=== PATIENT | female | born 1960 ===

== ENCOUNTER 2016-11-01 12:25 | Inpatient (IN) | payer MEDICAID ==
--- NOTE | 2016-11-01 12:51 | C.PDOC ---
History Of Present Illness A 56 year old female presents to the ED c/o numbness of the right face around mouth, finger tips, feet, and blurred vision since 5 am this morning. Patient notes subjective heaviness and numbness of the right upper and lower extremities , feeling dizziness, weakness of the right arm and neck, and pain in the right neck. Patient denies LOC, vomiting, fever, chills, nausea, or any other complaints. Patient reports not taking any medications at this time. Time Seen by Provider: 11/01/16 12:34 Chief Complaint (Nursing): Weakness/Neurological Deficit History Per: Patient History/Exam Limitations: no limitations Onset/Duration Of Symptoms: Hrs Current Symptoms Are (Timing): Still Present Severity: Mild - Symptoms Of CVA Associated Symptoms: denies: Impaired Speech Past Medical History Reviewed: Historical Data, Nursing Documentation, Vital Signs Vital Signs: Last Vital Signs Temp 97.7 F 11/01/16 12:30 Pulse 86 11/01/16 14:39 Resp 20 11/01/16 14:39 BP 148/85 11/01/16 14:39 Pulse Ox 100 11/01/16 16:24 Family History: States: Unknown Family Hx Review Of Systems Except As Marked, All Systems Reviewed And Found Negative. Constitutional: Negative for: Fever, Chills Gastrointestinal: Negative for: Nausea, Vomiting Musculoskeletal: Positive for: Neck Pain Neurological: Positive for: Weakness (Right upper and lower extremities and neck ), Numbness (Numbness and heaviness of the right face around lip area, finger tips, feet, and right upper and lower extremities), Dizziness. Negative for: Other (LOC) Physical Exam - Physical Exam Appears: Non-toxic Skin: Warm, Dry Head: Atraumatic, Normacephalic Eye(s): bilateral: Normal Inspection Cardiovascular: Rhythm Regular, No Murmur Respiratory: Normal Breath Sounds, No Rales, No Rhonchi, No Wheezing Gastrointestinal/Abdominal: Soft, No Tenderness Neurological/Psych: Oriented x3, Normal Speech (No slurred), Normal Cognition, Normal Motor, Normal Sensation, No Other (No drooling) Extremity: Right: No Drift, Left: No Drift, Upper: No Drift, Lower: No Drift ED Course And Treatment - Laboratory Results Result Diagrams: 11/01/16 13:16 11/01/16 13:16 O2 Sat by Pulse Oximetry: 100 (Room air) Pulse Ox Interpretation: Normal NIHSS Stroke Scale - Date/Time Evaluation Performed Date Performed: 11/01/16 Time Performed: 12:40 When Was NIHSS Performed: Baseline - How Severe is the Stoke Level of Consciousness: 0=Alert LOC to Questions: 0=Both comments correct LOC to commands: 0=Obeys both correctly Best Gaze: 0=Normal Visual: 0=No visual loss Facial: 1=Minor asymmetry Motor Arm - Left: 0=No drift Motor Arm - Right: 0=No drift Motor Leg - Left: 0=No drift Motor Leg - Right: 0=No drift Limb Ataxia: 0=Absent Sensory: 0=Normal Best Language: 0=No aphasia Dysarthia: 0=Normal articulation Extinction & Inattention (Neglect): 0=Normal, no object Score: 1 Severity Of Stroke: 1-4= Minor Stroke rTPA Inclusion/Exclusion - Refusal of Treatment Patient Refused Treatment: No - Inclusion Criteria for Altepase Patient is 18 years or Older: Yes The Clinical Diagnosis of Ischemic Stroke That is Causing a Potentially Disabling Neurological Deficit: No Time of Onset is Well Established to be Less Than 270 Minute Before Treatment Would Begin: No Risk/Benefit Discussed With Patient/Family Member Present: No - Exclusion Criteria for Altepase Uncontrolled Hypertension at Time of Treatment (Systolic BP above 185 or Diastolic BP above 110 mmHg): No Medical Decision Making Medical Decision Making: Differentia Dx: Stroke Plans: -Blood labs -CT scan -EKG -Consultation with Dr. Rosado -CXR -IV fluids -Reassess and disposition Disposition Discussed With DrZuleyma: Leonela Roberson Doctor Will See Patient In The: Hospital Counseled Patient/Family Regarding: Studies Performed - Disposition Disposition: HOSPITALIZED Disposition Time: 16:18 Condition: GUARDED - Clinical Impression Clinical Impression: Stroke - Scribe Statement The provider has reviewed the documentation as recorded by the Scribe Eric felix All medical record entries made by the Scribe were at my direction and personally dictated by me. I have reviewed the chart and agree that the record accurately reflects my personal performance of the history, physical exam, medical decision making, and the department course for this patient. I have also personally directed, reviewed, and agree with the discharge instructions and disposition. Decision To Admit - Pt Status Changed To: Hospital Disposition Of: Inpatient - Admit Certification Admit to Inpatient:: After my assessment, the patient will require hospitalization for at least two midnights. This is because of the severity of symptoms shown, intensity of services needed, and/or the medical risk in this patient being treated as an outpatient. - InPatient: Physician Admission Certification: I certify that this patient requires 2 or more midnights of care for the following reason:: patient with coratid artery stenosis - . Bed Request Type: Telemetry Patient Diagnosis: Stroke
[2016-11-01 13:25] LABS: BASO % 0.6 % (0.0-2.0); EOS # 0.1 K/uL (0.0-0.7); EOS % 0.9 % (0.0-4.0); HEMATOCRIT 43.1 % (34.0-47.0); LYMPH % 36.6 % (20.0-40.0); MEAN CELL VOLUME 91.7 fL (81.0-99.0); MEAN CORPUSCULAR HEMOGLOBIN 30.5 pg (27.0-31.0); MEAN CORPUSCULAR HGB CONC 33.3 g/dL (33.0-37.0); MEAN PLATELET VOLUME 7.4 fL (7.2-11.7); MONO # 0.4 K/uL (0.0-0.8); MONO % 4.9 % (0.0-10.0); NRBC % 0.1 % (0.0-2.0); RED CELL DISTRIBUTION WIDTH 14.3 % (11.5-14.5); WHITE BLOOD COUNT 8.1 K/uL (4.8-10.8)
[2016-11-01 13:29] LABS: CHLORIDE 105 mmol/L (98-107); POTASSIUM 3.8 mmol/L (3.6-5.2); SODIUM 142 mmol/L (132-148)
[2016-11-01 13:31] LABS: ALB/GLOB RATIO 1.5 (1.0-2.1); AST/SGOT 15 U/L (14-36); BILIRUBIN,TOTAL 0.8 mg/dL (0.2-1.3); CARBON DIOXIDE 24 mmol/L (22-30); CHOLESTEROL 199 mg/dL (0-199); GFR AFRICAN-AMERICAN > 60; TOTAL PROTEIN 7.3 g/dL (6.3-8.3)
[2016-11-01 13:32] LABS: ALKALINE PHOSPHATASE 87 U/L (38-126); BLOOD UREA NITROGEN 14 mg/dL (7-17); CALCIUM 8.9 mg/dl (8.6-10.4); GLUCOSE,RANDOM 88 mg/dL (65-105)
--- NOTE | 2016-11-01 13:39 | RAD ---
HISTORY: stroke COMPARISON: None available. TECHNIQUE: Chest, one view. FINDINGS: Examination limited by habitus. LUNGS: No focal consolidation. Please note that chest x-ray has limited sensitivity for the detection of pulmonary masses. PLEURA: No significant pleural effusion identified. No definite pneumothorax . CARDIOVASCULAR: The cardiomediastinal silhouette appears within normal limits of size. OSSEOUS STRUCTURES: No acute osseous abnormality identified. VISUALIZED UPPER ABDOMEN: Unremarkable. OTHER FINDINGS: None. IMPRESSION: No focal consolidation, significant pleural effusion, or definite pneumothorax identified.
[2016-11-01 13:51] LABS: ALT/SGPT < 6 U/L (9-52)
[2016-11-01] MEDS ORDERED: Iodixanol 320 MG/ML 100 ML BOTTLE IV ONE ×2 (13:54→14:19)
[2016-11-01 14:40] VITALS: RESP 20
--- NOTE | 2016-11-01 15:29 | CT ---
PROCEDURE: CTA of the neck and brain 11/01/2016. HISTORY: CVA COMPARISON: No prior TECHNIQUE: Contiguous helical/ transaxial sections of the neck and brain performed in standard fashion following intravenous injection of approximately 100 cc of Visipaque 320 contrast material employing CTA protocol. Additional 2 dimensional sagittal and coronal reformats provided. Radiation dose: Total exam DLP = 1230.55. MGy-cm. This CT exam was performed using one or more of the following dose reduction techniques: Automated exposure control, adjustment of the mA and/or kV according to patient size, and/or use of iterative reconstruction technique. FINDINGS: Origins of the great vessels are patent without with only minor atherosclerotic disease The left common carotid artery is widely patent without evidence of occlusion or significant stenosis. . There elliptical shaped calcified plaque seen along the posterior margin of the left carotid bifurcation extending superiorly into the proximal internal carotid artery with resultant narrowing of the proximal internal carotid artery estimated approximately 70 %. The distal left internal carotid arteries including petrous, cavernous and supraclinoid segments are also widely patent without evidence of occlusion significant stenosis or large aneurysm/ vascular malformation. . Right-sided carotid circulation is widely patent throughout without occlusion or significant stenosis The vertebral arteries are widely patent as well on left-sided which is slightly larger in caliber more dominant than the right. Basilar artery is patent as are posterior cerebral noted in this arteries without occlusion or narrowing. . The visualized major branches of the [place] are also unremarkable without evidence of large aneurysm nor vascular malformation. Suspect minor chronic periventricular white matter ischemic changes. Note the possibility of an acute infarct cannot be excluded on this study and if there is any concern, consider followup MRI of the brain. Of centrilobular emphysematous changes seen in the upper lung sw[place] right more involved than left. IMPRESSION: Unremarkable CTA of the brain. Suspect minor chronic periventricular white matter ischemic changes. Note the possibility of an acute infarct cannot be excluded on this study and if there is any concern, consider followup MRI of the brain. Mild narrowing left bifurcation/proximal internal carotid artery estimated approximately 30 %
--- NOTE | 2016-11-01 16:16 | CP.PCM.CON ---
History of Present Illness - History of Present Illness History of Present Illness: Mrs. Rodríguez is a 56-year-old woman with no significant past medical history who states that she woke up this morning with neck pain and feeling dizzy. As she progressed with her day, she started noticing that her right arm and leg were feeling heavy and she was having less sensation on that side. She presented to the ED with these complaints and underwent a CT scan of the head, which did not show any acute findings. CTA of the head/neck did show a concerning area of stenosis involving the left carotid artery. She continued to complain of right side "heaviness", but did not exhibit significant objective findings, except possibly a slight naso-labial flattening. Her initial NIHSS was possibly a 1. She denied blurry vision, headache, nausea, vomiting, chest pain, shortness of breath, abdominal pain, or other associated symptoms. Review of Systems - Review of Systems All systems: reviewed and no additional remarkable complaints except Past Patient History - Past Social History Smoking Status: Heavy Smoker > 10 Cigarettes Daily - PSYCHIATRIC Hx Substance Use: No - SURGICAL HISTORY Hx Section: Yes - ANESTHESIA Hx Anesthesia: No Hx Anesthesia Reactions: No Meds Allergies/Adverse Reactions: Allergies Allergy/AdvReac Type Severity Reaction Status Date / Time No Known Allergies Allergy Verified 11/01/16 12:53 Physical Exam - Constitutional Appears: Well - Head Exam Head Exam: ATRAUMATIC, NORMAL INSPECTION, NORMOCEPHALIC - Eye Exam Eye Exam: EOMI, Normal appearance, PERRL - ENT Exam ENT Exam: Mucous Membranes Moist, Normal Exam - Neck Exam Neck exam: Positive for: Normal Inspection - Respiratory Exam Respiratory Exam: Clear to Auscultation Bilateral, NORMAL BREATHING PATTERN - Cardiovascular Exam Cardiovascular Exam: REGULAR RHYTHM - GI/Abdominal Exam GI & Abdominal Exam: Normal Bowel Sounds, Soft. absent: Tenderness - Rectal Exam Rectal Exam: Deferred - Neurological Exam Neurological exam: Alert, CN II-XII Intact, Normal Gait, Oriented x3, Reflexes Normal Additional comments: NIHSS = 0 - Expanded Neurological Exam Expanded Patient oriented to: person, place, time Cranial nerves: EOM's Intact: Normal, Facial Sensation: Normal, Gag Reflex: Normal, Nystagmus: Normal Ataxia: No Cerebellar Function: Finger to Nose: Normal, Heel to [place]ias: Normal, Romberg: Normal Upper motor neuron: Babinski Sign: Normal, Oracio Neglect: Normal, Pronator Drift : Normal, Sensory Extinction: Normal Sensory exam: Lower Extremity 2 Point Discrimination: Normal, Lower Extremity Light Touch: Normal, Upper Extremity 2 Point Discrimination: Normal, Upper Extremity Light Touch: Normal Neuro motor strength exam: Left Upper Extremity: 5, Right Upper Extremity: 5, Left Lower Extremity: 5, Right Lower Extremity: 5 DTR: Bicep Left: 2+, Bicep Right: 2+, Patellar Left: 2+, Patellar Right: 2+ - Psychiatric Exam Psychiatric exam: Normal Affect, Normal Mood Results - Vital Signs Recent Vital Signs: Last Vital Signs Temp 97.7 F 11/01/16 12:30 Pulse 86 11/01/16 14:39 Resp 20 11/01/16 14:39 BP 148/85 11/01/16 14:39 Pulse Ox 98 11/01/16 14:39 - Labs Result Diagrams: 11/01/16 13:16 11/01/16 13:16 Labs: Laboratory Results - last 24 hr 11/01/16 11/01/16 11/01/16 13:16 13:16 13:16 WBC 8.1 RBC 4.70 Hgb 14.3 Hct 43.1 MCV 91.7 MCH 30.5 MCHC 33.3 RDW 14.3 Plt Count 322 MPV 7.4 Neut % (Auto) 57.0 Lymph % (Auto) 36.6 [place] % (Auto) 4.9 Eos % (Auto) 0.9 Baso % (Auto) 0.6 Neut # 4.6 Lymph # 3.0 [place] # 0.4 Eos # 0.1 Baso # 0.0 PT 11.3 INR 1.0 APTT 34 Sodium 142 Potassium 3.8 Chloride 105 Carbon Dioxide 24 Anion Gap 17 BUN 14 Creatinine 0.5 L Est GFR ( Amer) > 60 Est GFR (Non-Af Amer) > 60 Random Glucose 88 Hemoglobin A1c Calcium 8.9 Total Bilirubin 0.8 AST 15 ALT < 6 L Alkaline Phosphatase 87 Troponin I < 0.0120 Total Protein 7.3 Albumin 4.4 Globulin 2.9 Albumin/Globulin Ratio 1.5 Triglycerides 100 Cholesterol 199 LDL Cholesterol Direct 137 H HDL Cholesterol 44 Blood Type Antibody Screen 11/01/16 11/01/16 13:16 13:16 WBC RBC Hgb Hct MCV MCH MCHC RDW Plt Count MPV Neut % (Auto) Lymph % (Auto) [place] % (Auto) Eos % (Auto) Baso % (Auto) Neut # Lymph # [place] # Eos # Baso # PT INR APTT Sodium Potassium Chloride Carbon Dioxide Anion Gap BUN Creatinine Est GFR ( Amer) Est GFR (Non-Af Amer) Random Glucose Hemoglobin A1c 5.8 Calcium Total Bilirubin AST ALT Alkaline Phosphatase Troponin I Total Protein Albumin Globulin Albumin/Globulin Ratio Triglycerides Cholesterol LDL Cholesterol Direct HDL Cholesterol Blood Type O POSITIVE Antibody Screen Negative - Imaging and Cardiology CT scan - head Status: Image reviewed by me, Report reviewed by me (No acute findings on CT head. CTA of the head and neck showed left carotid artery stenosis of about 70- 75% without evidence of dissection.) Assessment & Plan (1) Symptomatic carotid artery stenosis Assessment and Plan: The patient's right sided symptoms are consistent with left carotid artery stenosis. Treatment should include loading with Plavix 300 mg once and continuing 75 mg daily, and starting aspirin 81 mg daily, consult vascular surgery, hydrate with NS at 100 mL/hr, PT/OT. Work-up should include MRI/MRA of the head/neck without contrast, echocardiogram with bubble study, carotid doppler, hemoglobin A1c, lipid panel, ESR, CRP. Thank you very much for this interesting consultation. Status: Acute Priority: High
--- NOTE | 2016-11-01 16:48 | CP.PCM.HP ---
History of Present Illness - History of Present Illness History of Present Illness: Medicine Progress Note- Dr. Roberson's Service 56 year old female with no PMHx presents to the hospital after experiencing numbness and tingling over right side of lips, finger tips and tips of her toes since waking up this morning at 5 am. She also experienced dizziness, changes in vision, nausea, and some unsteadiness secondary to dizziness. Patient reports numbness and tingling only lasted for a few minutes, but changes in vision lasted 1-2 hours. Admits to subjective heaviness of the right upper and lower extremities. Symptoms progressively worsened and she decided to come in for evaluation. Last time she saw her PMD was 1 year ago. All symptoms have resolved. Denies syncope, head trauma, chest pain, SOB, fevers, chills, neck stiffness. She does report some "neck pressure" but not pain. PMHx: none Medications: none Allergies: NKDA Surgeries: Present on Admission - Present on Admission Any Indicators Present on Admission: No Review of Systems - Constitutional Constitutional: absent: Chills, Fatigue, Fever, Lethargy - EENT Eyes: Blurred Vision, Change in Vision Ears: Disequilibrium, Dizziness - Cardiovascular Cardiovascular: absent: Chest Pain, Chest Pain at Rest, Dyspnea - Respiratory Respiratory: absent: Cough, Dyspnea, Wheezing - Gastrointestinal Gastrointestinal: absent: Abdominal Pain, Diarrhea, Nausea, Vomiting - Genitourinary Genitourinary: absent: Difficulty Urinating, Dysuria - Musculoskeletal Musculoskeletal: Numbness, Tingling. absent: Back Pain, Myalgias - Integumentary Integumentary: absent: Rash, Wounds - Neurological Neurological: Dizziness, Numbness, Sensory Deficit, Tingling. absent: Confusion , Convulsions, Focal Weakness, Frequent Falls, Headaches, Memory Loss, Syncope, Weakness - Psychiatric Psychiatric: absent: Anxiety, Depression - Endocrine Endocrine: absent: Fatigue, Palpitations - Hematologic/Lymphatic Hematologic: absent: Easy Bruising, Lymphadenopathy Past Patient History - Past Social History Smoking Status: Heavy Smoker > 10 Cigarettes Daily - PSYCHIATRIC Hx Substance Use: No - SURGICAL HISTORY Hx Section: Yes - ANESTHESIA Hx Anesthesia: No Hx Anesthesia Reactions: No Meds Allergies/Adverse Reactions: Allergies Allergy/AdvReac Type Severity Reaction Status Date / Time No Known Allergies Allergy Verified 11/01/16 12:53 Physical Exam - Constitutional Appears: No Acute Distress - Head Exam Head Exam: NORMAL INSPECTION, NORMOCEPHALIC - Eye Exam Eye Exam: EOMI, Normal appearance - ENT Exam ENT Exam: Mucous Membranes Moist Additional comments: +naso-labial flattening - Neck Exam Neck exam: Positive for: Full Rom, Normal Inspection - Respiratory Exam Respiratory Exam: Clear to Auscultation Bilateral, NORMAL BREATHING PATTERN. absent: Rales, Rhonchi, Wheezes - Cardiovascular Exam Cardiovascular Exam: REGULAR RHYTHM, +S1, +S2 - GI/Abdominal Exam GI & Abdominal Exam: Normal Bowel Sounds, Soft. absent: Distended, Tenderness - Extremities Exam Extremities exam: Positive for: full ROM, normal inspection. Negative for: pedal edema - Back Exam Back exam: NORMAL INSPECTION - Neurological Exam Neurological exam: Alert, CN II-XII Intact, Normal Gait, Oriented x3 - Expanded Neurological Exam Expanded Patient oriented to: person, place, time Cranial nerves: EOM's Intact: Normal, Facial [place] w/Forehead Movement: Normal , Facial [place] w/o Forehead Movement: Normal, Facial Sensation: Normal, Gag Reflex: Normal, Nystagmus: Normal, Tongue Deviation: Normal Coma Scale Eye Opening: SPONTANEOUS Coma Scale Motor Response: OBEYS COMMANDS Coma Scale Verbal: Oriented Coma Scale Total: 15 - Psychiatric Exam Psychiatric exam: Normal Affect, Normal Mood - Skin Skin Exam: Dry, Normal Color, Warm Results - Vital Signs Recent Vital Signs: Last Vital Signs Temp 97.7 F 11/01/16 12:30 Pulse 86 11/01/16 14:39 Resp 20 11/01/16 14:39 BP 148/85 11/01/16 14:39 Pulse Ox 100 11/01/16 16:25 - Labs Result Diagrams: 11/01/16 13:16 11/01/16 13:16 Labs: Laboratory Results - last 24 hr 11/01/16 11/01/16 11/01/16 13:16 13:16 13:16 WBC 8.1 RBC 4.70 Hgb 14.3 Hct 43.1 MCV 91.7 MCH 30.5 MCHC 33.3 RDW 14.3 Plt Count 322 MPV 7.4 Neut % (Auto) 57.0 Lymph % (Auto) 36.6 [place] % (Auto) 4.9 Eos % (Auto) 0.9 Baso % (Auto) 0.6 Neut # 4.6 Lymph # 3.0 [place] # 0.4 Eos # 0.1 Baso # 0.0 PT 11.3 INR 1.0 APTT 34 Sodium 142 Potassium 3.8 Chloride 105 Carbon Dioxide 24 Anion Gap 17 BUN 14 Creatinine 0.5 L Est GFR ( Amer) > 60 Est GFR (Non-Af Amer) > 60 Random Glucose 88 Hemoglobin A1c Calcium 8.9 Total Bilirubin 0.8 AST 15 ALT < 6 L Alkaline Phosphatase 87 Troponin I < 0.0120 Total Protein 7.3 Albumin 4.4 Globulin 2.9 Albumin/Globulin Ratio 1.5 Triglycerides 100 Cholesterol 199 LDL Cholesterol Direct 137 H HDL Cholesterol 44 Blood Type Antibody Screen 11/01/16 11/01/16 13:16 13:16 WBC RBC Hgb Hct MCV MCH MCHC RDW Plt Count MPV Neut % (Auto) Lymph % (Auto) [place] % (Auto) Eos % (Auto) Baso % (Auto) Neut # Lymph # [place] # Eos # Baso # PT INR APTT Sodium Potassium Chloride Carbon Dioxide Anion Gap BUN Creatinine Est GFR ( Amer) Est GFR (Non-Af Amer) Random Glucose Hemoglobin A1c 5.8 Calcium Total Bilirubin AST ALT Alkaline Phosphatase Troponin I Total Protein Albumin Globulin Albumin/Globulin Ratio Triglycerides Cholesterol LDL Cholesterol Direct HDL Cholesterol Blood Type O POSITIVE Antibody Screen Negative Assessment & Plan (1) Symptomatic carotid artery stenosis Assessment and Plan: Admit to Tele. Head CT showed no acute findings as reviewed by neurologist. CTA of the head and neck showed left carotid artery stenosis of about 70-75% without evidence of dissection. Neuro consult placed- Dr. Rosado- called by ED attending. As per neuro: The patient's right sided symptoms are consistent with left carotid artery stenosis. Patient received loading dose of Plavix 300 mg and continuing 75 mg daily as per Neuro. Start aspirin 81 mg daily Start Crestor 5 mg po HS NS at 100 mL/hr PT/OT Neuro checks f/u Swallow eval Consult vascular surgery as per neuro-Dr. Hsieh- help appreciated. f/u MRI/MRA of the head/neck without contrast as per neuro f/u echocardiogram with bubble study f/u carotid doppler hemoglobin A1c, lipid panel, ESR, CRP. Status: Acute Priority: High (2) Prophylactic measure Assessment and Plan: SCDs Heparin SC Q8H Pepcid 20 mg PO BID All management as per Dr. Roberson Status: Acute
[2016-11-01] MEDS: Sodium Chloride 0.9% 1,000 ML IV SCH (17:08)
[2016-11-01] MEDS ORDERED: Sodium Chloride 0.9% 1,000 ML ONE (17:08)
--- NOTE | 2016-11-01 18:39 | CP.PCM.CON ---
History of Present Illness - History of Present Illness History of Present Illness: note dictated clear cut symptoms duplex pending, cta reviewed may benefit from intervention if findings and cardiac condition staisfatory dwp in serbian Past Patient History - Past Social History Smoking Status: Heavy Smoker > 10 Cigarettes Daily - PSYCHIATRIC Hx Substance Use: No - SURGICAL HISTORY Hx Section: Yes - ANESTHESIA Hx Anesthesia: No Hx Anesthesia Reactions: No Meds Allergies/Adverse Reactions: Allergies Allergy/AdvReac Type Severity Reaction Status Date / Time No Known Allergies Allergy Verified 11/01/16 12:53 - Medications Medications: Current Medications Aspirin (Aspirin Chewable) 81 mg PO DAILY [facility] Famotidine (Pepcid) 20 mg PO BID [facility] Heparin Sodium (Porcine) (Heparin) 5,000 units SC Q8H [facility] Sodium Chloride (Sodium Chloride 0.9%) 1,000 mls @ 100 mls/hr IV .Q10H [facility] Last Admin: 11/01/16 17:08 Dose: 100 mls/hr Lisinopril (Zestril) 2.5 mg PO DAILY [facility] Ondansetron HCl (Zofran Inj) 4 mg IVP Q6 PRN PRN Reason: Nausea/Vomiting Rosuvastatin Calcium (Crestor) 5 mg PO HS [facility] Results - Vital Signs Recent Vital Signs: Last Vital Signs Temp 97.7 F 11/01/16 12:30 Pulse 86 11/01/16 14:39 Resp 20 11/01/16 14:39 BP 148/85 11/01/16 14:39 Pulse Ox 100 11/01/16 16:25 - Labs Result Diagrams: 11/01/16 13:16 11/01/16 13:16
--- NOTE | 2016-11-01 23:00 | CON ---
DATE: 11/01/2016 HISTORY OF PRESENT ILLNESS: The patient is a 56-year-old woman, nondiabetic, nonhypertensive, smoker who was admitted to the hospital with left hemispheric symptoms, right-sided facial weakness, right hand weakness, which came in fast today. Exactly how long lasting . PAST MEDICAL HISTORY: Apart from this, remarkable for section. She has 4 children. She de nies any other history of serious illnesses at present. FAMILY HISTORY: Noncontributory. SOCIAL HISTORY: She smokes a pack of cigarettes a day. REVIEW OF SYSTEMS: Obtained particularly in regard to cardiac or neurological problems and she denie d any other systemic complaints. PHYSICAL EXAMINATION: Shows no residual weakness at this time. She has all peripheral pulses. She has no other signs of peripheral vascular insufficiency. DIAGNOSTIC: CT angiogram which was done was reviewed and basically shows that the patient has a narr owing of at least 70% at the origin of the left internal carotid artery. IMPRESSION: The patient has had a left hemispheric neurological event, which may be receding. RECOMMENDATION: The patient will have a duplex scan to confirm the degree of stenosis. Most likely, this patient would benefit from carotid endarterectomy. She is clearly symptomatic. However, we ne ed further evaluation of her cardiac status and further evaluation by duplex imaging of the carotid b ifurcation. She should be started on medications, which she has already been started on and I will f ollow her closely with you. Adilson Hsihe Jr., MD cc: [id number] TT: 11/01/2016 23:00:06 Confirmation # [id number] Dictation # [id number] mn
[2016-11-02] MEDS: Sodium Chloride 0.9% 1,000 ML IV SCH ×2 (04:16→13:15)
[2016-11-02 06:19] LABS: BASO % 0.5 % (0.0-2.0); EOS # 0.1 K/uL (0.0-0.7); EOS % 1.4 % (0.0-4.0); HEMATOCRIT 39.2 % (34.0-47.0); LYMPH # 2.5 K/uL (1.0-4.3); LYMPH % 34.8 % (20.0-40.0); MEAN CELL VOLUME 92.5 fL (81.0-99.0); MEAN CORPUSCULAR HEMOGLOBIN 30.8 pg (27.0-31.0); MEAN CORPUSCULAR HGB CONC 33.3 g/dL (33.0-37.0); MEAN PLATELET VOLUME 7.6 fL (7.2-11.7); MONO # 0.5 K/uL (0.0-0.8); MONO % 7.3 % (0.0-10.0); RED CELL DISTRIBUTION WIDTH 14.2 % (11.5-14.5); WHITE BLOOD COUNT 7.3 K/uL (4.8-10.8)
[2016-11-02 07:54] LABS: THYROID STIMULATING HORMONE 1.75 mIU/L (0.46-4.68)
[2016-11-02 08:09] LABS: CHLORIDE 110 mmol/L (98-107); SODIUM 142 mmol/L (132-148)
[2016-11-02 08:11] LABS: GFR AFRICAN-AMERICAN > 60
[2016-11-02 08:12] LABS: ALB/GLOB RATIO 1.4 (1.0-2.1); ALKALINE PHOSPHATASE 76 U/L (38-126); ALT/SGPT 14 U/L (9-52); AST/SGOT 16 U/L (14-36); BILIRUBIN,TOTAL 0.7 mg/dL (0.2-1.3); BLOOD UREA NITROGEN 18 mg/dL (7-17); CALCIUM 8.2 mg/dl (8.6-10.4); CARBON DIOXIDE 22 mmol/L (22-30); GLUCOSE,RANDOM 96 mg/dL (65-105); TOTAL PROTEIN 6.3 g/dL (6.3-8.3)
--- NOTE | 2016-11-02 09:24 | CP.PCM.PN ---
Subjective - Date & Time of Evaluation Date of Evaluation: 11/02/16 Time of Evaluation: 09:20 - Subjective Subjective: Medicine Progress Note- Dr. Roberson: Patient seen and examined at bedside this morning. Patient's daughter at bedside. Discussed findings of carotid stenosis, aneurysm, and need for left endarterectomy with patient. Patient and daughter understand and are agreeable. No complaints this AM. No acute events overnight. Objective - Vital Signs/Intake and Output Vital Signs (last 24 hours): Temp Pulse Resp BP Pulse Ox 98.3 F 82 20 157/75 H 98 11/02/16 07:35 11/02/16 07:35 11/02/16 07:35 11/02/16 07:35 11/02/16 07:35 Intake and Output: 11/02/16 11/02/16 06:59 18:59 Intake Total 2250 Balance 2250 - Medications Medications: Current Medications Aspirin (Aspirin Chewable) 81 mg PO DAILY [facility] Famotidine (Pepcid) 20 mg PO BID [facility] Last Admin: 11/01/16 18:58 Dose: 20 mg Heparin Sodium (Porcine) (Heparin) 5,000 units SC Q8H [facility] Last Admin: 11/02/16 06:03 Dose: 5,000 units Sodium Chloride (Sodium Chloride 0.9%) 1,000 mls @ 100 mls/hr IV .Q10H [facility] Last Admin: 11/02/16 04:16 Dose: 100 mls/hr Lisinopril (Zestril) 2.5 mg PO DAILY [facility] Ondansetron HCl (Zofran Inj) 4 mg IVP Q6 PRN PRN Reason: Nausea/Vomiting Pneumococcal Polyvalent Vaccine (Pneumovax 23 Vaccine) 0.5 ml IM .ONCE ONE Stop: 11/04/16 10:01 Rosuvastatin Calcium (Crestor) 5 mg PO HS [facility] Last Admin: 11/01/16 21:26 Dose: 5 mg - Labs Labs: 11/02/16 06:08 11/02/16 06:08 PT 11.3 SECONDS (9.7-12.2) 11/01/16 13:16 INR 1.0 11/01/16 13:16 APTT 34 SECONDS (21-34) 11/01/16 13:16 - Constitutional Appears: No Acute Distress - Head Exam Head Exam: NORMAL INSPECTION, NORMOCEPHALIC - Eye Exam Eye Exam: EOMI, Normal appearance - ENT Exam ENT Exam: Mucous Membranes Moist - Neck Exam Neck Exam: Full ROM, Normal Inspection - Respiratory Exam Respiratory Exam: Clear to Ausculation Bilateral, NORMAL BREATHING PATTERN - Cardiovascular Exam Cardiovascular Exam: REGULAR RHYTHM, +S1, +S2 - GI/Abdominal Exam GI & Abdominal Exam: Soft. absent: Distended, Tenderness - Extremities Exam Extremities Exam: Full ROM, Normal Inspection. absent: Pedal Edema - Back Exam Back Exam: NORMAL INSPECTION - Neurological Exam Neurological Exam: Alert, Awake, Oriented x3 - Psychiatric Exam Psychiatric exam: Normal Affect, Normal Mood - Skin Skin Exam: Dry, Normal Color, Warm Assessment and Plan - Assessment and Plan (Free Text) Assessment: (1) Symptomatic carotid artery stenosis Assessment and Plan: Admit to Tele. Head CT showed no acute findings as reviewed by neurologist. CTA of the head and neck showed left carotid artery stenosis of about 70-75% without evidence of dissection. Neuro consult placed- Dr. Rosado- called by ED attending. As per neuro: The patient's right sided symptoms are consistent with left carotid artery stenosis. Pleavix 75 mg daily as per Neuro. Aspirin 81 mg daily Crestor 5 mg po HS NS at 100 mL/hr PT/OT Neuro checks Consult vascular surgery as per neuro-Dr. Hsieh- help appreciated. Patient recommended for endarterectomy. Cardio consult placed for cardio clearance- Dr. Tavares- help appreciated. MRI brain:No evidence of acute or subacute infarct. No evidence of mass lesion mass effect or midline shift. Mild white matter changes suggestive but nonspecific for chronic microvascular ischemic disease. 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 Prominent right posterior communicated artery continuous to P2.No hemodynamically significant stenosis or occlusion of the intracranial circulation. f/u Echocardiogram with bubble study- done, wait on official read. f/u Carotid dopplers- done, wait on official read. 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 Neuro surgery consult placed- Dr. Loyd- help appreciated. As per neurologist, diagnostic cerebral angiogram recommended for further evaluation since the patient may have treatment of the proximally located carotid stenosis. May need to transfer to [place] for the angiogram. (3) Hyperlipidemia Assessment and Plan: T, Chol: 199, LDL 127, HDL 44. Crestor 5 mg po HS (4) Prophylactic measure Assessment and Plan: SCDs Heparin SC Q8H Pepcid 20 mg PO BID All management as per Dr. Roberson Status: Acute
--- NOTE | 2016-11-02 09:42 | MRI ---
PROCEDURE: Magnetic Resonance Angiography Brain HISTORY: code stroke COMPARISON: None available. TECHNIQUE: 3D time of flight MR angiography of the intracranial arteries was performed. Rotating maximum intensity projection images were generated. FINDINGS: INTERNAL CEREBRAL ARTERIES: There is 3.5 x 3.2 millimeter saccular aneurysm arising from the left cavernous internal carotid artery. The skull base, petrous, cavernous and supraclinoid segments are bilaterally widely patient. ANTERIOR CEREBRAL ARTERIES: Unremarkable. A1 and A2 segments are widely patent. Smaller distal branches unremarkable, as visualized. MIDDLE CEREBRAL ARTERIES: Unremarkable. M1 and M2 segments are widely patent. Perisylvian branches grossly symmetric. POSTERIOR CIRCULATION: Basilar Artery: Unremarkable. Distal Vertebral Arteries: Unremarkable. Posterior Cerebral Arteries: The right P1 is small in size. The right posterior communicated artery is prominent in size supplies the right posterior cerebral artery Posterior Inferior Cerebellar Arteries: Unremarkable. ANEURYSM/ VASCULAR MALFORMATIONS: 3.5 millimeter saccular aneurysm at the left cavernous internal carotid artery. OTHER FINDINGS: None. 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 Prominent right posterior communicated artery continuous to P2. No hemodynamically significant stenosis or occlusion of the intracranial circulation. Preliminary report was submitted by [facility].
--- NOTE | 2016-11-02 09:49 | MRI ---
PROCEDURE: MRI BRAIN WITHOUT CONTRAST HISTORY: code stroke COMPARISON: Comparison is made to the previous CT and CTA of the brain done on the same day. TECHNIQUE: Multiplanar, multisequence MR images of the brain were obtained without intravenous contrast enhancement. FINDINGS: HEMORRHAGE: None DWI: No evidence of an acute or early subacute infarction. BRAIN PARENCHYMA: No mass effect or edema. Small foci of hyperintense FLAIR signal seen in the white matter suggestive but nonspecific for chronic microvascular ischemic disease. VENTRICLES: Unremarkable. No hydrocephalus. CRANIUM: Unremarkable. ORBITS: Grossly unremarkable. PARANASAL SINUSES/MASTOIDS: Clear VASCULAR SYSTEM: Skull base flow voids intact. OTHER FINDINGS: None. IMPRESSION: No evidence of acute or subacute infarct. No evidence of mass lesion mass effect or midline shift. Mild white matter changes suggestive but nonspecific for chronic microvascular ischemic disease. Preliminary report was submitted by [facility].
--- NOTE | 2016-11-02 10:41 | MRI ---
PROCEDURE: MR Angiography of the neck without contrast HISTORY: carotid stenosis COMPARISON: None available. TECHNIQUE: 3D [id number] angiography of the neck was performed. Rotating maximum intensity projection images of the cervical carotid and vertebral arteries were generated. The origins of the common carotid arteries were not visualized, which is a limitation inherent to the non-contrast time of flight technique. FINDINGS: RIGHT CAROTID ARTERIES: Common Carotid Artery: Normal. Carotid Bifurcation: Normal. Internal Carotid Artery:Normal. External Carotid Artery (proximal branches): Normal. LEFT CAROTID ARTERIES: Common Carotid Artery: Normal. Carotid Bifurcation: Normal. Internal Carotid Artery:There is focal approximately 50 percent stenosis at the origin of the left internal carotid artery. External Carotid Artery (proximal branches): Normal. VERTEBRAL ARTERIES: Right Vertebral Artery: Normal. Left Vertebral Artery: Normal. OTHER FINDINGS: None. IMPRESSION: Focal mild approximately 50 percent stenosis at the origin of the left internal carotid artery. Otherwise no evidence of hemodynamically significant stenosis at the carotid and vertebral arteries in the neck. Preliminary report was submitted by [facility].
--- NOTE | 2016-11-02 12:33 | CP.PCM.PN ---
Subjective - Date & Time of Evaluation Date of Evaluation: 11/02/16 Time of Evaluation: 12:32 - Subjective Subjective: studies reviewed intracerebral aneurysm noted i advise left endarterectomy will discuss with consultants Objective - Vital Signs/Intake and Output Vital Signs (last 24 hours): Temp Pulse Resp BP Pulse Ox 98.3 F 82 20 145/73 98 11/02/16 07:35 11/02/16 07:35 11/02/16 07:35 11/02/16 11:00 11/02/16 07:35 Intake and Output: 11/02/16 11/02/16 06:59 18:59 Intake Total 2250 Balance 2250 - Medications Medications: Current Medications Aspirin (Aspirin Chewable) 81 mg PO DAILY [facility] Last Admin: 11/02/16 10:46 Dose: 81 mg Famotidine (Pepcid) 20 mg PO BID [facility] Last Admin: 11/02/16 10:46 Dose: 20 mg Heparin Sodium (Porcine) (Heparin) 5,000 units SC Q8H [facility] Last Admin: 11/02/16 06:03 Dose: 5,000 units Sodium Chloride (Sodium Chloride 0.9%) 1,000 mls @ 100 mls/hr IV .Q10H [facility] Last Admin: 11/02/16 04:16 Dose: 100 mls/hr Lisinopril (Zestril) 2.5 mg PO DAILY [facility] Last Admin: 11/02/16 10:46 Dose: 2.5 mg Ondansetron HCl (Zofran Inj) 4 mg IVP Q6 PRN PRN Reason: Nausea/Vomiting Pneumococcal Polyvalent Vaccine (Pneumovax 23 Vaccine) 0.5 ml IM .ONCE ONE Stop: 11/04/16 10:01 Rosuvastatin Calcium (Crestor) 5 mg PO HS [facility] Last Admin: 11/01/16 21:26 Dose: 5 mg - Labs Labs: 11/02/16 06:08 11/02/16 06:08 PT 11.3 SECONDS (9.7-12.2) 11/01/16 13:16 INR 1.0 11/01/16 13:16 APTT 34 SECONDS (21-34) 11/01/16 13:16
--- NOTE | 2016-11-02 14:41 | CP.PCM.PN ---
Subjective - Date & Time of Evaluation Date of Evaluation: 11/02/16 Time of Evaluation: 12:00 - Subjective Subjective: Mrs. Rodríguez was seen and examined today at bedside. She had no new complaints and said that she felt that the heaviness on her right side was improved. There were no acute events overnight. I discussed the findings of the vascular imaging with the patient and we spoke about options for diagnosis and potential treatment. Objective - Vital Signs/Intake and Output Vital Signs (last 24 hours): Temp Pulse Resp BP Pulse Ox 98.3 F 82 20 145/73 98 11/02/16 07:35 11/02/16 07:35 11/02/16 07:35 11/02/16 11:00 11/02/16 07:35 Intake and Output: 11/02/16 11/02/16 06:59 18:59 Intake Total 2250 Balance 2250 - Medications Medications: Current Medications Aspirin (Aspirin Chewable) 81 mg PO DAILY [facility] Last Admin: 11/02/16 10:46 Dose: 81 mg Famotidine (Pepcid) 20 mg PO BID [facility] Last Admin: 11/02/16 10:46 Dose: 20 mg Heparin Sodium (Porcine) (Heparin) 5,000 units SC Q8H [facility] Last Admin: 11/02/16 13:29 Dose: 5,000 units Sodium Chloride (Sodium Chloride 0.9%) 1,000 mls @ 100 mls/hr IV .Q10H [facility] Last Admin: 11/02/16 04:16 Dose: 100 mls/hr Lisinopril (Zestril) 2.5 mg PO DAILY [facility] Last Admin: 11/02/16 10:46 Dose: 2.5 mg Ondansetron HCl (Zofran Inj) 4 mg IVP Q6 PRN PRN Reason: Nausea/Vomiting Pneumococcal Polyvalent Vaccine (Pneumovax 23 Vaccine) 0.5 ml IM .ONCE ONE Stop: 11/04/16 10:01 Rosuvastatin Calcium (Crestor) 5 mg PO HS [facility] Last Admin: 11/01/16 21:26 Dose: 5 mg - Labs Labs: 11/02/16 06:08 11/02/16 06:08 PT 11.3 SECONDS (9.7-12.2) 11/01/16 13:16 INR 1.0 11/01/16 13:16 APTT 34 SECONDS (21-34) 11/01/16 13:16 - Constitutional Appears: Well - Head Exam Head Exam: ATRAUMATIC, NORMAL INSPECTION, NORMOCEPHALIC - Eye Exam Eye Exam: EOMI, Normal appearance, PERRL Pupil Exam: NORMAL ACCOMODATION, PERRL - ENT Exam ENT Exam: Mucous Membranes Moist, Normal Exam - Neck Exam Neck Exam: Full ROM, Normal Inspection. absent: Lymphadenopathy - Cardiovascular Exam Cardiovascular Exam: REGULAR RHYTHM, +S1, +S2. absent: Murmur - GI/Abdominal Exam GI & Abdominal Exam: Soft, Normal Bowel Sounds. absent: Tenderness - Neurological Exam Neurological Exam: Alert, Awake, CN II-XII Intact, Normal Gait, Oriented x3 Neuro motor strength exam: Left Upper Extremity: 5, Right Upper Extremity: 5, Left Lower Extremity: 5, Right Lower Extremity: 5 - Psychiatric Exam Psychiatric exam: Normal Affect, Normal Mood Assessment and Plan (1) Symptomatic carotid artery stenosis Assessment & Plan: Continue anti-platelet medication for stroke prevention and follow up with vascular surgery for potential treatment. Adequate hydration to maintain cerebral perfusion is recommended. PT/OT and DVT Px. Status: Acute (2) Cerebral aneurysm without rupture Assessment & Plan: Recommend diagnostic cerebral angiogram for further evaluation since the patient may have treatment of the proximally located carotid stenosis. May need to transfer to [place] for the angiogram. Status: Acute
--- NOTE | 2016-11-02 15:24 | CP.PCM.CON ---
History of Present Illness - History of Present Illness History of Present Illness: I was asked to give a cardiology risk assessment in a patient who requires carotid endarterectomy. Patient is a 56 year female with PMH HTN who presents with facial numbness. The patient has been found to have a left carotid stenosis. She will require endarterectomy. The patient is a smoker for greater than 30 years. She has dyspnea on exertion ,particularly with walking a flight of stairs. She denies chest pain. Review of Systems - Constitutional Constitutional: absent: As Per HPI, Anorexia, Chills, Daytime Sleepiness, Excessive Sweating, Fatigue, Fever, Frequent Falls, Headache, Increased Appetite , Lethargy, Malaise, Night Sweats, Snoring, Sleep Apnea, Weight Gain, Weight Loss, Weakness, Other - EENT Eyes: absent: As Per HPI, Blind Spots, Blurred Vision, Change in Vision, Decreased Night Vision, Diplopia, Discharge, Dry Eye, Exophthalmos, Floaters, Irritation, Itchy Eyes, Loss of Peripheral Vision, Pain, Photophobia, Requires Corrective Lenses, Sees Flashes, Spots in Vision, Tunnel Vision, Other Visual Disturbances, Loss of Vision, Other Ears: absent: As Per HPI, Decreased Hearing, Ear Discharge, Ear Pain, Tinnitus, Abnormal Hearing, Disequilibrium, Dizziness, Other Nose/Mouth/Throat: absent: As Per HPI, Epistaxis, Nasal Congestion, Nasal Discharge, Nasal Obstruction, Nasal Trauma, Nose Pain, Post Nasal Drip, Sinus Pain, Sinus Pressure, Bleeding Gums, Change in Voice, Dental Pain, Dry Mouth, Dysphagia, Halitosis, Hoarsness, Lip Swelling, Mouth Lesions, Mouth Pain, Odynophagia, Sore Throat, Throat Swelling, Tongue Swelling, Facial Pain, Neck Pain, Neck Mass, Other - Cardiovascular Cardiovascular: Dyspnea - Gastrointestinal Gastrointestinal: absent: As Per HPI, Abdominal Pain, Belching, Bloating, Change in Bowel Habits, Change in Stool Character, Coffee Ground Emesis, Constipation, Cramping, Diarrhea, Dyspepsia, Dysphagia, Early Satiety, Excessive Flatus, Fecal Incontinence, Heartburn, Hematemesis, Hematochezia, Loose Stools, Melena, Nausea, Odynophagia, Temesmus, Vomiting, Other - Genitourinary Genitourinary: absent: As Per HPI, Change in Urinary Stream, Difficulty Urinating, Dysuria, Flank Pain, Hematuria, Pyuria, Nocturia, Urinary Incontinence, Urinary Frequency, Urinary Hesitance, Urinary Urgency, Voiding Freq/Small Amts, Freq UTI, Hx Renal/Bladder Calculi, Hx /Renal Surgery, Bladder Distension, Other - Musculoskeletal Musculoskeletal: absent: As Per HPI, Abnormal Gait, Arthralgias, Atrophy, Back Pain, Deformity, Joint Swelling, Limited Range of Motion, Loss of Height, Muscle Cramps, Muscle Weakness, Myalgias, Neck Pain, Numbness, Radiating Pain into Limb, Stiffness, Tingling, Other - Integumentary Integumentary: absent: As Per HPI, Acne, Alopecia, Bleeding Lesions, Change in Hair, Change in Nails, Change in Pigmentation, Changing Lesions, Dry Skin, Erythema, Furuncle, Hirsutism, Lesions, New Lesions, Non-Healing Lesions, Photosensitivity, Pruritus, Rash, Skin Pain, Skin Ulcer, Sores, Striae, Swelling , Unusual Bruising, Wounds, Jaundice, Other - Neurological Neurological: Focal Weakness - Psychiatric Psychiatric: absent: As Per HPI, Abnormal Sleep Pattern, Anhedonia, Anxiety, Auditory Hallucinations, Behavioral Changes, Change in Appetite, Change in Libido, Confusion, Depression, Difficulty Concentrating, Hallucinations, Homicidal Ideation, Hopelessness, Irritability, Memory Loss, Mood Swings, Panic Attacks, Paranoia, Suicidal Ideation, Visual Hallucinations, Tactile Hallucinations, Other - Endocrine Endocrine: absent: As Per HPI, Change in Body Appearance, Change in Libido, Cold Intolorance, Deepening of Voice, Excessive Sweating, Fatigue, Flushing, Heat Intolorance, Increase in Ring/Shoe/Hat Size, Palpitations, Polydipsia, Polyphagia, Polyuria, Other - Hematologic/Lymphatic Hematologic: absent: As Per HPI, Easy Bleeding, Easy Bruising, Lymphadenopathy, Other Past Patient History - Past Social History Smoking Status: Current Some Days Smoker - CARDIAC Hx Cardiac Disorders: No - PULMONARY Hx Respiratory Disorders: No - NEUROLOGICAL Hx Neurological Disorder: No - HEENT Hx HEENT Problems: No - RENAL Hx Chronic Kidney Disease: No - ENDOCRINE/METABOLIC Hx Endocrine Disorders: No - HEMATOLOGICAL/ONCOLOGICAL Hx Blood Disorders: No - INTEGUMENTARY Hx Dermatological Problems: No - MUSCULOSKELETAL/RHEUMATOLOGICAL Hx Musculoskeletal Disorders: No Hx Falls: No - GASTROINTESTINAL Hx Gastrointestinal Disorders: No - GENITOURINARY/GYNECOLOGICAL Hx Genitourinary Disorders: No - PSYCHIATRIC Hx Psychophysiologic Disorder: No Hx Substance Use: No - SURGICAL HISTORY Hx Section: Yes (20 years ago) - ANESTHESIA Hx Anesthesia: No Hx Anesthesia Reactions: No Has any member of the family had a problem w/ anesthesia?: No Meds Allergies/Adverse Reactions: Allergies Allergy/AdvReac Type Severity Reaction Status Date / Time No Known Allergies Allergy Verified 11/01/16 12:53 - Medications Medications: Current Medications Aspirin (Aspirin Chewable) 81 mg PO DAILY [facility] Last Admin: 11/02/16 10:46 Dose: 81 mg Famotidine (Pepcid) 20 mg PO BID [facility] Last Admin: 11/02/16 10:46 Dose: 20 mg Heparin Sodium (Porcine) (Heparin) 5,000 units SC Q8H [facility] Last Admin: 11/02/16 13:29 Dose: 5,000 units Sodium Chloride (Sodium Chloride 0.9%) 1,000 mls @ 100 mls/hr IV .Q10H [facility] Last Admin: 11/02/16 04:16 Dose: 100 mls/hr Lisinopril (Zestril) 2.5 mg PO DAILY [facility] Last Admin: 11/02/16 10:46 Dose: 2.5 mg Ondansetron HCl (Zofran Inj) 4 mg IVP Q6 PRN PRN Reason: Nausea/Vomiting Pneumococcal Polyvalent Vaccine (Pneumovax 23 Vaccine) 0.5 ml IM .ONCE ONE Stop: 11/04/16 10:01 Rosuvastatin Calcium (Crestor) 5 mg PO [facility] Last Admin: 11/01/16 21:26 Dose: 5 mg Physical Exam - Constitutional Appears: Non-toxic - Head Exam Head Exam: NORMAL INSPECTION - Eye Exam Eye Exam: Normal appearance - ENT Exam ENT Exam: Mucous Membranes Moist - Neck Exam Neck exam: Positive for: Full Rom - Respiratory Exam Respiratory Exam: Decreased Breath Sounds - Cardiovascular Exam Cardiovascular Exam: REGULAR RHYTHM - GI/Abdominal Exam GI & Abdominal Exam: Normal Bowel Sounds - Rectal Exam Rectal Exam: Deferred - Extremities Exam Extremities exam: Negative for: pedal edema - Back Exam Back exam: NORMAL INSPECTION - Neurological Exam Neurological exam: Alert, Oriented x3 - Psychiatric Exam Psychiatric exam: Normal Affect - Skin Skin Exam: Normal Color Results - Vital Signs Recent Vital Signs: Last Vital Signs Temp 98.3 F 11/02/16 07:35 Pulse 82 11/02/16 07:35 Resp 20 11/02/16 07:35 BP 145/73 11/02/16 11:00 Pulse Ox 98 11/02/16 07:35 - Labs Result Diagrams: 11/02/16 06:08 11/02/16 06:08 Labs: Laboratory Results - last 24 hr 11/01/16 11/01/16 11/02/16 18:49 21:36 06:06 WBC RBC Hgb Hct MCV MCH MCHC RDW Plt Count MPV Neut % (Auto) Lymph % (Auto) [place] % (Auto) Eos % (Auto) Baso % (Auto) Neut # Lymph # [place] # Eos # Baso # Sodium Potassium Chloride Carbon Dioxide Anion Gap BUN Creatinine Est GFR ( Amer) Est GFR (Non-Af Amer) POC Glucose (mg/dL) 79 95 89 Random Glucose Calcium Total Bilirubin AST ALT Alkaline Phosphatase Total Protein Albumin Globulin Albumin/Globulin Ratio TSH 3rd Generation 11/02/16 11/02/16 11/02/16 06:08 06:08 11:51 WBC 7.3 RBC 4.24 Hgb 13.1 Hct 39.2 MCV 92.5 MCH 30.8 MCHC 33.3 RDW 14.2 Plt Count 297 MPV 7.6 Neut % (Auto) 56.0 Lymph % (Auto) 34.8 [place] % (Auto) 7.3 Eos % (Auto) 1.4 Baso % (Auto) 0.5 Neut # 4.1 Lymph # 2.5 [place] # 0.5 Eos # 0.1 Baso # 0.0 Sodium 142 Potassium 4.0 Chloride 110 H Carbon Dioxide 22 Anion Gap 15 BUN 18 H Creatinine 0.6 L Est GFR ( Amer) > 60 Est GFR (Non-Af Amer) > 60 POC Glucose (mg/dL) 121 H Random Glucose 96 Calcium 8.2 L Total Bilirubin 0.7 AST 16 ALT 14 Alkaline Phosphatase 76 Total Protein 6.3 Albumin 3.6 Globulin 2.7 Albumin/Globulin Ratio 1.4 TSH 3rd Generation 1.75 - EKG Data EKG Interpreted by: Myself EKG shows normal: Sinus rhythm Assessment & Plan (1) Symptomatic carotid artery stenosis Assessment and Plan: patient is a smoker and has cardiovascular risk factors. Recommend nuclear perfusion imaging prior to surgery. I reviewed the echocardiogram with the patient. Status: Acute Priority: High (2) HTN (hypertension) Assessment and Plan: blood pressure control Status: Acute
--- NOTE | 2016-11-02 15:59 | VASCLAB ---
PROCEDURE: HISTORY: Code stroke, carotid stenosis on head CT COMPARISON: No previous carotid exam TECHNIQUE: Grayscale and duplex Doppler evaluation of the cervical carotid and vertebral arteries were performed. The common carotid, carotid bifurcations and cervical Internal Carotid Artery (ICA) and proximal External Carotid Artery (ECA) were evaluated. The vertebral arteries were evaluated for gross patency and flow direction. Report prepared by GRETA Kimble FINDINGS: RIGHT CAROTID ARTERIES: 1. Common Carotid Artery: Minimal heterogeneous plaque formation of the right common carotid artery. Maximum Peak Systolic velocity: 77 cm/sec: End-diastolic velocity 26 cm/sec. 2. Carotid Bifurcation: Minimal heterogeneous plaque formation. Maximum Peak Systolic velocity: 76 cm/sec: End-diastolic velocity 28 cm/sec. 3. Internal Carotid Artery: Plaque description: Minimal heterogeneous 3.1. Proximal Segment: Peak systolic velocity 79 cm/sec: End-diastolic velocity 31 cm/sec - % stenosis 0-15% 3.2. Middle Segment: Peak systolic velocity 101 cm/sec: End-diastolic velocity 40 cm/sec - % stenosis 0-15% 3.3. Distal Segment: Peak systolic velocity 65 cm/sec: End-diastolic velocity 30 cm/sec - % stenosis 0-15% 4. External Carotid Artery: No significant focal plaque formation. Peak systolic velocity 96 cm/sec 5. ICA/CCA Ratio: 1.3 LEFT CAROTID ARTERIES: 1. Common Carotid Artery: Minimal heterogeneous plaque formation of the left common carotid artery. Maximum Peak Systolic velocity: 114 cm/sec: End-diastolic velocity 29 cm/sec. 2. Carotid Bifurcation: Heterogeneous plaque formation. Maximum Peak Systolic velocity: 56 cm/sec: End-diastolic velocity 17 cm/sec. 3. Internal Carotid Artery: Plaque description: Mild irregular calcific 3.1. Proximal Segment: Peak systolic velocity 111 cm/sec: End-diastolic velocity 47 cm/sec - % stenosis 0-15% 3.2. Middle Segment: Peak systolic velocity 94 cm/sec: End-diastolic velocity 42 cm/sec - % stenosis 0-15% 3.3. Distal Segment: Peak systolic velocity 81 cm/sec: End-diastolic velocity 39 cm/sec - % stenosis 0-15% 4. External Carotid Artery: No significant focal plaque formation. Peak systolic velocity 91 cm/sec 5. ICA/CCA Ratio: 1.4 VERTEBRAL ARTERIES: 1. Right Vertebral Artery: The right vertebral artery flow direction is antegrade. 2. Left Vertebral Artery: The left vertebral artery flow direction is antegrade. OTHER FINDINGS: 1. Right Brachial Blood pressure: 140 mmHg. 2. Left Brachial Blood pressure: 130 mmHg. IMPRESSION: RIGHT: Duplex scan does not suggest hemodynamically significant stenosis of the right extracranial carotid arteries. LEFT: Duplex scan does not suggest hemodynamically significant stenosis of the left extracranial carotid arteries.
--- NOTE | 2016-11-02 17:39 | CARD ---
APPROVED REPORT EXAM: Two-dimensional and M-mode echocardiogram with Doppler and color Doppler. Other Information Quality : GoodRhythm : NSR INDICATION Dizziness and Vertigo SMOKE M-Mode DIMENSIONS RVDd1.11 (2.1-3.2cm)Left Atrium (MM)3.78 (2.5-4.0cm) IVSd0.69 (0.7-1.1cm)Aortic Root2.43 (2.2-3.7cm) LVDd5.14 (4.0-5.6cm)Aortic Cusp Exc.1.39 (1.5-2.0cm) PWd0.94 (0.7-1.1cm)FS (%) 33 % LVDs3.44 (2.0-3.8cm)LVEF (%)61 (>50%) Aortic Valve AoV Peak Dllbcshq535.6cm/Madeline Peak GR.11mmHg Mitral Valve MV E Jqgxxpuy71.2cm/sMV A Nnzkfeyi83.7cm/sE/A ratio0.9 TDI E/Lateral E'0.0E/Medial E'0.0 Tricuspid Valve TR Peak Invgxbyy476tu/sRAP [id number] Peak Gr.22mmHg [id number] LEFT VENTRICLE The left ventricle is normal size. There is normal left ventricular wall thickness. The left ventricular function is normal. The left ventricular ejection fraction is within the normal range. There is normal LV segmental wall motion. The left ventricular diastolic function is normal. RIGHT VENTRICLE The right ventricular systolic function is normal. ATRIA The left atrium size is normal. The right atrium size is normal. AORTIC VALVE The aortic valve is normal in structure. No aortic regurgitation is present. MITRAL VALVE The mitral valve is normal in structure. There is no mitral valve regurgitation noted. TRICUSPID VALVE The tricuspid valve is normal in structure. There is trace to mild tricuspid regurgitation. PULMONIC VALVE The pulmonary valve is normal in structure. There is no pulmonic valvular regurgitation. GREAT VESSELS The aortic root is normal in size. The IVC is normal in size and collapses >50% with inspiration. PERICARDIAL EFFUSION There is no pericardial effusion. <Conclusion> Normal biventricular function. No valvular abnormality. No pericardial effusion.
--- NOTE | 2016-11-02 19:09 | CARD ---
APPROVED REPORT EKG Measurement Heart [id number] <Conclusion> Normal sinus rhythm Normal ECG
[2016-11-03] MEDS: Sodium Chloride 0.9% 1,000 ML IV SCH ×2 (00:12→09:22)
[2016-11-03 07:24] LABS: BASO # 0.1 K/uL (0.0-0.2); BASO % 0.7 % (0.0-2.0); EOS # 0.1 K/uL (0.0-0.7); EOS % 1.5 % (0.0-4.0); HEMATOCRIT 39.9 % (34.0-47.0); LYMPH # 3.4 K/uL (1.0-4.3); LYMPH % 41.6 % (20.0-40.0); MEAN CELL VOLUME 92.2 fL (81.0-99.0); MEAN CORPUSCULAR HEMOGLOBIN 30.5 pg (27.0-31.0); MEAN CORPUSCULAR HGB CONC 33.1 g/dL (33.0-37.0); MEAN PLATELET VOLUME 7.7 fL (7.2-11.7); MONO # 0.6 K/uL (0.0-0.8); MONO % 6.8 % (0.0-10.0); RED CELL DISTRIBUTION WIDTH 14.2 % (11.5-14.5); WHITE BLOOD COUNT 8.2 K/uL (4.8-10.8)
[2016-11-03 07:52] LABS: CHLORIDE 107 mmol/L (98-107)
[2016-11-03 07:53] LABS: POTASSIUM 3.8 mmol/L (3.6-5.2); SODIUM 141 mmol/L (132-148)
[2016-11-03 07:55] LABS: ALB/GLOB RATIO 1.5 (1.0-2.1); ALKALINE PHOSPHATASE 70 U/L (38-126); AST/SGOT 12 U/L (14-36); BILIRUBIN,TOTAL 0.6 mg/dL (0.2-1.3); BLOOD UREA NITROGEN 16 mg/dL (7-17); CARBON DIOXIDE 22 mmol/L (22-30); GFR AFRICAN-AMERICAN > 60; TOTAL PROTEIN 6.3 g/dL (6.3-8.3)
[2016-11-03 07:56] LABS: ALT/SGPT 14 U/L (9-52); CALCIUM 8.3 mg/dl (8.6-10.4); GLUCOSE,RANDOM 83 mg/dL (65-105); MAGNESIUM 2.2 mg/dL (1.6-2.3)
--- NOTE | 2016-11-03 12:36 | CP.PCM.PN ---
Subjective - Date & Time of Evaluation Date of Evaluation: 11/03/16 Time of Evaluation: 12:35 - Subjective Subjective: findings dw neurology no plan for any interention at present medical management Objective - Vital Signs/Intake and Output Vital Signs (last 24 hours): Temp Pulse Resp BP Pulse Ox 98.3 F 69 20 142/83 98 11/03/16 07:05 11/03/16 07:05 11/03/16 07:05 11/03/16 07:05 11/03/16 07:05 - Medications Medications: Current Medications Aspirin (Aspirin Chewable) 81 mg PO DAILY [facility] Last Admin: 11/02/16 10:46 Dose: 81 mg Famotidine (Pepcid) 20 mg PO BID [facility] Last Admin: 11/02/16 17:15 Dose: 20 mg Heparin Sodium (Porcine) (Heparin) 5,000 units SC Q8H [facility] Last Admin: 11/03/16 05:43 Dose: Not Given Sodium Chloride (Sodium Chloride 0.9%) 1,000 mls @ 100 mls/hr IV .Q10H [facility] Last Admin: 11/03/16 00:12 Dose: 100 mls/hr Lisinopril (Zestril) 2.5 mg PO DAILY [facility] Last Admin: 11/02/16 10:46 Dose: 2.5 mg Ondansetron HCl (Zofran Inj) 4 mg IVP Q6 PRN PRN Reason: Nausea/Vomiting Pneumococcal Polyvalent Vaccine (Pneumovax 23 Vaccine) 0.5 ml IM .ONCE ONE Stop: 11/04/16 10:01 Rosuvastatin Calcium (Crestor) 5 mg PO HS [facility] Last Admin: 11/02/16 21:34 Dose: 5 mg - Labs Labs: 11/03/16 07:12 11/03/16 07:12 PT 11.3 SECONDS (9.7-12.2) 11/01/16 13:16 INR 1.0 11/01/16 13:16 APTT 34 SECONDS (21-34) 11/01/16 13:16
--- NOTE | 2016-11-03 13:21 | CP.PCM.PN ---
Subjective - Date & Time of Evaluation Date of Evaluation: 11/03/16 Time of Evaluation: 09:00 - Subjective Subjective: Mrs. Rodríguez was seen and examined today at bedside as she prepared for her diagnostic cerebral angiogram. She had no complaints and there were no acute events overnight. I discussed the results of the angiogram with Dr. Elliott Griggs and Dr. Adilson Hsieh. The findings of the CTA and MRA were likely artifactual since there was no significant stenosis or aneurysmal dilation in the left internal carotid. We agreed that medical management would be most appropriate. Objective - Vital Signs/Intake and Output Vital Signs (last 24 hours): Temp Pulse Resp BP Pulse Ox 98.3 F 69 20 142/83 98 11/03/16 07:05 11/03/16 07:05 11/03/16 07:05 11/03/16 07:05 11/03/16 07:05 - Medications Medications: Current Medications Aspirin (Aspirin Chewable) 81 mg PO DAILY [facility] Last Admin: 11/02/16 10:46 Dose: 81 mg Famotidine (Pepcid) 20 mg PO BID [facility] Last Admin: 11/02/16 17:15 Dose: 20 mg Heparin Sodium (Porcine) (Heparin) 5,000 units SC Q8H [facility] Last Admin: 11/03/16 05:43 Dose: Not Given Sodium Chloride (Sodium Chloride 0.9%) 1,000 mls @ 100 mls/hr IV .Q10H [facility] Last Admin: 11/03/16 00:12 Dose: 100 mls/hr Lisinopril (Zestril) 2.5 mg PO DAILY [facility] Last Admin: 11/02/16 10:46 Dose: 2.5 mg Ondansetron HCl (Zofran Inj) 4 mg IVP Q6 PRN PRN Reason: Nausea/Vomiting Pneumococcal Polyvalent Vaccine (Pneumovax 23 Vaccine) 0.5 ml IM .ONCE ONE Stop: 11/04/16 10:01 Rosuvastatin Calcium (Crestor) 5 mg PO HS [facility] Last Admin: 11/02/16 21:34 Dose: 5 mg - Labs Labs: 11/03/16 07:12 11/03/16 07:12 PT 11.3 SECONDS (9.7-12.2) 11/01/16 13:16 INR 1.0 11/01/16 13:16 APTT 34 SECONDS (21-34) 11/01/16 13:16 - Head Exam Head Exam: ATRAUMATIC, NORMAL INSPECTION, NORMOCEPHALIC - Eye Exam Eye Exam: EOMI, Normal appearance, PERRL - ENT Exam ENT Exam: Mucous Membranes Moist, Normal Exam - Neck Exam Neck Exam: Full ROM, Normal Inspection. absent: Lymphadenopathy - Respiratory Exam Respiratory Exam: Clear to Ausculation Bilateral, NORMAL BREATHING PATTERN - Cardiovascular Exam Cardiovascular Exam: REGULAR RHYTHM, +S1, +S2. absent: Murmur - GI/Abdominal Exam GI & Abdominal Exam: Soft, Normal Bowel Sounds. absent: Tenderness - Neurological Exam Neurological Exam: Alert, Awake, CN II-XII Intact, Normal Gait, Oriented x3 Neuro motor strength exam: Left Upper Extremity: 5, Right Upper Extremity: 5, Left Lower Extremity: 5, Right Lower Extremity: 5 - Psychiatric Exam Psychiatric exam: Normal Affect, Normal Mood - Skin Skin Exam: Dry, Intact, Normal Color, Warm Assessment and Plan (1) Transient ischemic attack Assessment & Plan: Continue aspirin 81 mg daily for stroke prevention, check lipid panel and treat to maintain LDL< 100, PT/OT and D/C home if stable to follow up as outpatient. Status: Acute
--- NOTE | 2016-11-03 14:38 | CP.PCM.PN ---
Subjective - Date & Time of Evaluation Date of Evaluation: 11/03/16 Time of Evaluation: 07:00 - Subjective Subjective: Medicine Progress Note: Patient seen and examined today. Patient went for angiogram at [facility]. No acute events overnight. Objective - Vital Signs/Intake and Output Vital Signs (last 24 hours): Temp Pulse Resp BP Pulse Ox 98.3 F 69 20 142/83 98 11/03/16 07:05 11/03/16 07:05 11/03/16 07:05 11/03/16 07:05 11/03/16 07:05 - Medications Medications: Current Medications Aspirin (Aspirin Chewable) 81 mg PO DAILY [facility] Last Admin: 11/02/16 10:46 Dose: 81 mg Famotidine (Pepcid) 20 mg PO BID [facility] Last Admin: 11/02/16 17:15 Dose: 20 mg Heparin Sodium (Porcine) (Heparin) 5,000 units SC Q8H [facility] Last Admin: 11/03/16 05:43 Dose: Not Given Sodium Chloride (Sodium Chloride 0.9%) 1,000 mls @ 100 mls/hr IV .Q10H [facility] Last Admin: 11/03/16 00:12 Dose: 100 mls/hr Lisinopril (Zestril) 2.5 mg PO DAILY [facility] Last Admin: 11/02/16 10:46 Dose: 2.5 mg Ondansetron HCl (Zofran Inj) 4 mg IVP Q6 PRN PRN Reason: Nausea/Vomiting Pneumococcal Polyvalent Vaccine (Pneumovax 23 Vaccine) 0.5 ml IM .ONCE ONE Stop: 11/04/16 10:01 Rosuvastatin Calcium (Crestor) 5 mg PO [facility] Last Admin: 11/02/16 21:34 Dose: 5 mg - Labs Labs: 11/03/16 07:12 11/03/16 07:12 PT 11.3 SECONDS (9.7-12.2) 11/01/16 13:16 INR 1.0 11/01/16 13:16 APTT 34 SECONDS (21-34) 11/01/16 13:16 - Constitutional Appears: No Acute Distress - Head Exam Head Exam: NORMAL INSPECTION, NORMOCEPHALIC - Eye Exam Eye Exam: EOMI, Normal appearance - ENT Exam ENT Exam: Mucous Membranes Moist - Neck Exam Neck Exam: Full ROM, Normal Inspection - Respiratory Exam Respiratory Exam: Clear to Ausculation Bilateral, NORMAL BREATHING PATTERN - Cardiovascular Exam Cardiovascular Exam: REGULAR RHYTHM, +S1, +S2 - GI/Abdominal Exam GI & Abdominal Exam: Soft. absent: Distended, Tenderness - Extremities Exam Extremities Exam: Full ROM, Normal Inspection - Back Exam Back Exam: NORMAL INSPECTION - Neurological Exam Neurological Exam: Alert, Awake, Oriented x3 - Psychiatric Exam Psychiatric exam: Normal Affect, Normal Mood - Skin Skin Exam: Normal Color, Warm Assessment and Plan - Assessment and Plan (Free Text) Assessment: (1) Symptomatic carotid artery stenosis Assessment and Plan: Admit to Tele. Head CT showed no acute findings as reviewed by neurologist. CTA of the head and neck showed left carotid artery stenosis of about 70-75% without evidence of dissection. Neuro consult placed- Dr. Rosado- called by ED attending. Patient went for diagnostic angiogram this AM. As per neuro, the findings of the CTA and MRA were likely artifactual since there was no significant stenosis or aneurysmal dilation in the left internal carotid. Continue medical management at this time: Plavix 75 mg daily as per Neuro. Aspirin 81 mg daily Crestor 5 mg po HS Consult vascular surgery as per neuro-Dr. Hsieh- help appreciated. Patient to follow up as outpatient as per Dr. Hsieh. MRI brain:No evidence of acute or subacute infarct. No evidence of mass lesion mass effect or midline shift. Mild white matter changes suggestive but nonspecific for chronic microvascular ischemic disease. 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 Prominent right posterior communicated artery continuous to P2.No hemodynamically significant stenosis or occlusion of the intracranial circulation. f/u Echocardiogram with bubble study- done, wait on official read. f/u Carotid dopplers- done, wait on official read. 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 As per neuro, the findings of the CTA and MRA were likely artifactual since there was no significant stenosis or aneurysmal dilation in the left internal carotid. (3) Hyperlipidemia Assessment and Plan: T, Chol: 199, LDL 127, HDL 44. Crestor 5 mg po HS (4) Prophylactic measure Assessment and Plan: SCDs Heparin SC Q8H Pepcid 20 mg PO BID Patient cleared for discharge as per above attendings and Dr. Roberson. All management as per Dr. Roberson Status: Acute
[2016-11-03 16:08] VITALS: BP 151/80; PULSE 75; TEMP 98.2; O2SAT 97
[2016-11-04] MEDS ORDERED: Pneumococcal 23-Valent Vaccine IM ONE (10:00)
--- NOTE | 2016-11-06 07:37 | HP ---
This is a 56-year-old female admitted to the hospital with chief complaint of right side weakness, fa tigue, tiredness. The patient found to have carotid stenosis and ____ aneurysm. PHYSICAL EXAMINATION: GENERAL: Awake, alert, oriented. VITAL SIGNS: Temperature is 98, pulse 90. HEENT: Within normal limits. NECK: Supple. CHEST: Symmetrical. HEART: Regular. ABDOMEN: Soft. EXTREMITIES: No edema. ASSESSMENT AND PLAN: The patient suffers from carotid stenosis ____ aneurysm. The patient ____ neur ology, cardiology consult. Leonela Fernández MD cc: [id number] TT: 11/04/2016 11:59:48 francesca
--- NOTE | 2016-11-06 07:41 | PN ---
DATE: 11/02/2016 The patient is status post angiogram. Supportive care. We will discuss with neurology, cardiology. Leonela Fernández MD cc: [id number] TT: 11/04/2016 09:53:19 Confirmation # [id number] Dictation # [id number]
== END 2016-11-03 17:07 | disposition home or self-care (01) | DRG 15 ==
LOC: C.ER 12:25 → C.9E 16:50 → C.6T 17:20
PROVIDERS: ADMIT Internal Medicine Pulmonary Disease; ATTEND Internal Medicine Pulmonary Disease
PROC: B30 Imaging, Upper Arteries, Plain Radiography (ICD-10-PCS; principal; 2016-11-03)
PROC: B30 Imaging, Upper Arteries, Plain Radiography (ICD-10-PCS; 2016-11-03)
PROC: B30 Imaging, Upper Arteries, Plain Radiography (ICD-10-PCS; 2016-11-03)
DX: I65.22 Occlusion and stenosis of left carotid artery (principal); I67.1 Cerebral aneurysm, nonruptured; F17.210 Nicotine dependence, cigarettes, uncomplicated; E78.5 Hyperlipidemia, unspecified; I10 Essential (primary) hypertension